=== PATIENT | female | born 1970 | race Two or more races ===

== ENCOUNTER 2019-08-15 17:09 | Emergency (ER) | payer OTHER ==
[~2019-08-15] VITALS: Ht 152.4 cm; Wt 90.7 kg
[~2019-08-15 17:09] MED LIST: ALBU90OI6 INH; ALBU90OI61 INH; AZIT250 PO; CODGUAEL PO; COUMADIN; HYDACE5 PO; HYDR1TAB94 PO; IBUP600 PO; IBUP800 PO; LEVFLO500 PO; Monodox100 MG PO; NAPR500 PO; Norco 5-325 Ta1 EACH PO; ONDA4 PO; OXYACE5T PO; PHENA200 PO; SIME80CH PO; SULTRIDS PO; WARF5 PO; ZOFRAN
[2019-08-15] MEDS ORDERED: Norco 5-325 Ta1 EACH PO (19:16)
[2019-08-15] MEDS ORDERED: IBUP800 PO (19:16)
[2019-08-15] MEDS ORDERED: CRUTCH2 XX (19:17)
== END 2019-08-15 19:30 | disposition home or self-care (01) ==
LOC: ER 17:09
DX: S72.422A Displaced fracture of lateral condyle of left femur, initial encounter for closed fracture (principal); Z79.899 Other long term (current) drug therapy; Z79.51 Long term (current) use of inhaled steroids; Z86.718 Personal history of other venous thrombosis and embolism; X50.1XXA Overexertion from prolonged static or awkward postures, initial encounter
CPT/HCPCS: 29505; 99283-25; A9270-GY

== ENCOUNTER 2021-10-25 06:56 | Day surgery (SDC) | payer OTHER ==
[~2021-10-25] VITALS: Ht 160 cm; Wt 79.0 kg
[~2021-10-25 06:56] MED LIST changes: +ASPI81CH PO; +COQ-10100 MG PO; +CRUTCH2 XX; +EXCEDRIN PO; +IBUP200 PO; +IBUPROFEN IB200 MG PO; +KRILL OIL500 MG PO; +MELO7.5 PO; +MULTI-VITAMIN1 EAC2 PO; +OMEGA-3 + D SO1 EACH PO; +OMEGA-3 + VITA200 ML PO; +POTASSIUM PO; +Percocet 5-3251 EACH PO; +Potassium2 MEQ/1 M4 PO
--- NOTE | 2021-10-25 07:09 | NUR ---
, AMAURY, AT BEDSIDE. 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 OFFERED PAPERBOARD BOXES ESTIMATOR SERVCIE TO BE INITATIED AT PATIENT'S REQUEST AT ANYTIME DURING HER STAY. Patient confirms NPO status and agrees with scheduled surgery. History, Chart, Medications and Allergies reviewed before start of procedure.
--- NOTE | 2021-10-25 07:34 | NUR ---
NOZIN NASAL STAFF ENGINEER X3 AMPULES USED TO CLEAN NARES PER DR HWANG' ORDER. KNEE HIGH SAMEERA HOSE AND CALF PAS APPLIED TO RLE.
--- NOTE | 2021-10-25 08:24 | NUR ---
UP TO BR TO VOID PRIOR TO GOING TO OR.
--- NOTE | 2021-10-25 12:38 | NUR ---
PT ARRIVED TO UNIT FROM PACU VSS. PT DENIES PAIN, STATES LEG FEELS "HEAVY". SPOUSE AT BEDSIDE. DRESSING TO LLE CDI. POLAR PACK IN PLACE. TXA STARTED PER ORDERS.
--- NOTE | 2021-10-25 17:24 | NUR ---
summary NO ACUTE CHANGES SINCE ARRIVING TO FLOOR FROM PACU. PT WORKED W/THERAPY AND VOIDED. TXA COMPLETED PER ORDERS. MEDICATED PER ORDERS FOR PAIN. CALL LIGHT IN REACH.
--- NOTE | 2021-10-26 03:25 | NUR ---
SHIFT SUMMARY: PT. AOX4, AMBULATES TO THE BATHROOM ON SBA WITHOUT PROBLEMS.COMPLAINTS OF L KNEE PAIN MEDICATD PER EMAR. PT'S. DAUGHTER STAYED IN THE ROOM FOR THE NIGHT PER PT'S REQUEST WHICH APPROVED. EDUCATED ON CALLING FOR HELP/ASSISTANCE & NOT FALL, PT. VERBALIZED UNDERSTANDING, CLWR. VOIDING & SLEEPING WELL. NO S/S OF RESP./CV DISTRESS NOTED. WILL CONTINUE TO MONITOR.
[2021-10-26 04:50] LABS: BASOPHILS ABSOLUTE AUTO 0.01 K/mm3 (0.00-0.23); BASOPHILS PERCENT AUTO 0 % (0-2); EOSINOPHILS ABSOLUTE AUTO 0.06 K/mm3 (0.00-0.68); EOSINOPHILS PERCENT AUTO 0 % (0-6); Hematocrit 30.5 % (33.0-51.0); Hemoglobin 9.7 g/dL (11.5-16.0); IMMATURE GRAN ABSOLUTE AUTO 0.05 K/mm3 (0.00-0.10); IMMATURE GRAN PERCENT AUTO 0 % (0-1); LYMPHOCYTES PERCENT AUTO 17 % (21-46); MONOCYTES ABSOLUTE AUTO 0.96 K/mm3 (0.16-1.47); MONOCYTES PERCENT AUTO 7 % (4-13); Mean Corpuscular HGB 27.5 pg (26.0-34.0); Mean Corpuscular HGB Conc 31.8 g/dL (31.5-36.5); Mean Corpuscular Volume 86 fL (80-100); Mean Platelet Volume 10.7 fL (9.1-12.4); NEUTROPHILS ABSOLUTE AUTO 10.67 K/mm3 (1.96-9.15); NEUTROPHILS PERCENT AUTO 75 % (41-73); Platelet Count 277 K/mm3 (150-400); RDW Coefficient Variation 13.8 % (11.7-14.2); RDW Standard Deviation 43.5 fL (35.1-46.3); Red Blood Cell Count 3.53 M/mm3 (3.80-5.20); White Blood Cell Count 14.15 K/mm3 (4.00-11.30)
[2021-10-26 05:17] LABS: Anion Gap 3 mmol/L (6-16); Blood Urea Nitrogen 16 mg/dL (8-24); Bun/Creatinine Ratio 28.8 (12.0-20.0); CO2, Blood 28 mmol/L (21-32); Calcium, Blood 8.7 mg/dL (8.5-10.1); Chloride, Blood 107 mmol/L (98-108); Creatinine, Blood 0.56 mg/dL (0.40-1.00); Glomerular Filtration Rate >60 (60-); Glucose, Blood 117 mg/dL (70-99); Potassium, Blood 3.9 mmol/L (3.5-5.5); Sodium, Blood 138 mmol/L (136-145)
--- NOTE | 2021-10-26 12:18 | NUR ---
DISCHARGE: PACKET PRINTED AND PT/PT DAUGHTER EDUCATED. PT GIVEN SCRIPTS, MEDS DID NOT NEED FAXED TO PHARMACY. PT GIVEN EXTRA AQUACEL DRESSINGS. PT VERBALIZED UNDERSTANDING OF TEACHING. LEFT UNIT VIA WHEELCHAIR WITH JULISA WRIGHT AND DAUGHTER AT ABOUT 1215.
--- NOTE | 2021-10-26 13:48 | NUR ---
10/26/21 1348 Katerina Witt VERIFICATIONS: EDIT CHART.
== END 2021-10-26 12:17 | disposition home or self-care (01) ==
LOC: ORSCMMR 06:56 → ORD 08:15 → SURS 11:59 → ORSCMMR 10-26 12:17
PROVIDERS: Orthopaedic Surgery
PROC: 0SRD0JA Replacement of Left Knee Joint with Synthetic Substitute, Uncemented, Open Approach (ICD-10-PCS; principal; 2021-10-25 08:15)
DX: M17.12 Unilateral primary osteoarthritis, left knee (principal); Z96.651 Presence of right artificial knee joint; Z79.82 Long term (current) use of aspirin; Z79.899 Other long term (current) drug therapy; E66.9 Obesity, unspecified; Z68.35 Body mass index [BMI] 35.0-35.9, adult
CPT/HCPCS: 36415; 73560-LT; 80048; 85025; 97110; 97116; 97161; 97530; A9270; C1776; J0171; J0690; J0735; J1100; J1885; J2250; J2370; J2405; J2704; J2795; J3010; J7120

== ENCOUNTER 2022-03-31 06:14 | Day surgery (SDC) | payer OTHER ==
[~2022-03-31] VITALS: Ht 157.5 cm; Wt 83.0 kg
[~2022-03-31 06:14] MED LIST changes: +KRILL OIL 1,001 EACH PO; +Mobic15 MG PO; +POTASSIUM99 M3 PO
--- NOTE | 2022-03-31 07:58 | NUR ---
03/31/22 0757 Demi Rowan UNDER HEAD, PILLOW UNDER KNEES, RIGHT ARM TUCKED, LEFT ARM SECURED ON PADDED ARM BOARD.
== END 2022-03-31 08:50 | disposition home or self-care (01) ==
LOC: ORSCSDS 06:14
PROVIDERS: Orthopaedic Surgery
PROC: 0JBD0ZZ Excision of Right Upper Arm Subcutaneous Tissue and Fascia, Open Approach (ICD-10-PCS; principal; 2022-03-31 07:30)
DX: D17.21 Benign lipomatous neoplasm of skin and subcutaneous tissue of right arm (principal)
CPT/HCPCS: 88304; J0171; J0690; J1100; J1885; J2250; J2405; J2704; J2795; J3010; J7120

== ENCOUNTER 2023-04-06 11:14 | Emergency (ER) | payer OTHER ==
[~2023-04-06] VITALS: Ht 154.9 cm; Wt 93.4 kg
[2023-04-06 11:53] LABS: BASOPHILS ABSOLUTE AUTO 0.03 K/mm3 (0.00-0.23); BASOPHILS PERCENT AUTO 0 % (0-2); EOSINOPHILS ABSOLUTE AUTO 0.25 K/mm3 (0.00-0.68); EOSINOPHILS PERCENT AUTO 3 % (0-6); Hematocrit 41.9 % (33.0-51.0); Hemoglobin 13.9 g/dL (11.5-16.0); IMMATURE GRAN ABSOLUTE AUTO 0.02 K/mm3 (0.00-0.10); IMMATURE GRAN PERCENT AUTO 0 % (0-1); LYMPHOCYTES PERCENT AUTO 39 % (21-46); MONOCYTES ABSOLUTE AUTO 0.54 K/mm3 (0.16-1.47); MONOCYTES PERCENT AUTO 7 % (4-13); Mean Corpuscular HGB 27.8 pg (26.0-34.0); Mean Corpuscular HGB Conc 33.2 g/dL (31.5-36.5); Mean Corpuscular Volume 84 fL (80-100); Mean Platelet Volume 11.5 fL (9.1-12.4); NEUTROPHILS ABSOLUTE AUTO 3.63 K/mm3 (1.96-9.15); NEUTROPHILS PERCENT AUTO 49 % (41-73); Platelet Count 281 K/mm3 (150-400); RDW Coefficient Variation 14.3 % (11.7-14.2); RDW Standard Deviation 43.2 fL (35.1-46.3); White Blood Cell Count 7.37 K/mm3 (4.00-11.30)
[2023-04-06 13:17] LABS: Albumin, Blood 3.7 g/dL (3.4-5.0); Albumin/Globulin Ratio 0.9 (0.8-1.8); Bilirubin, Total 0.3 mg/dL (0.1-1.0); Bun/Creatinine Ratio 24.4 (12.0-20.0); Calcium, Blood 9.3 mg/dL (8.5-10.1); Creatinine, Blood 0.57 mg/dL (0.40-1.00); Globulin, Blood 4.1 g/dL (2.2-4.0); Potassium, Blood 4.2 mmol/L (3.5-5.5); Total Protein, Blood 7.8 g/dL (6.4-8.2)
[2023-04-06 13:49] VITALS: BP 124/76
[2023-04-06] MEDS ORDERED: Robaxin750 MG PO (14:11)
[2023-04-06] MEDS ORDERED: IBUP800 PO (14:11)
== END 2023-04-06 14:32 | disposition home or self-care (01) ==
LOC: ER 11:14
PROVIDERS: Physician Assistant
DX: S39.012A Strain of muscle, fascia and tendon of lower back, initial encounter (principal); G89.29 Other chronic pain; Z86.718 Personal history of other venous thrombosis and embolism; X58.XXXA Exposure to other specified factors, initial encounter
CPT/HCPCS: 76705; 80053; 83690; 85025; 96372; 99284-25; A9270; J1885

== ENCOUNTER 2023-05-09 07:40 | Day surgery (SDC) | payer OTHER ==
[~2023-05-09] VITALS: Ht 154.9 cm; Wt 90.1 kg
[~2023-05-09 07:40] MED LIST changes: +Robaxin750 MG PO
[2023-05-09] MEDS ORDERED: COENZYME Q-1030 MG (07:52)
[2023-05-09 09:50] VITALS: BP 94/74
== END 2023-05-09 10:15 | disposition home or self-care (01) ==
LOC: ORSCSDS 07:40
PROVIDERS: Internal Medicine Gastroenterology
PROC: 0DBL8ZX Excision of Transverse Colon, Via Natural or Artificial Opening Endoscopic, Diagnostic (ICD-10-PCS; principal; 2023-05-09 09:00)
PROC: 0DBK8ZX Excision of Ascending Colon, Via Natural or Artificial Opening Endoscopic, Diagnostic (ICD-10-PCS; principal; 2023-05-09 09:00)
DX: R10.31 Right lower quadrant pain (principal); R10.11 Right upper quadrant pain; D12.2 Benign neoplasm of ascending colon; D12.3 Benign neoplasm of transverse colon; Z79.899 Other long term (current) drug therapy
CPT/HCPCS: 88305; J2704; J7120

== ENCOUNTER 2024-06-14 15:34 | Emergency (ER) | payer OTHER ==
[~2024-06-14] VITALS: Ht 154.9 cm; Wt 90.7 kg
[~2024-06-14 15:34] MED LIST changes: +COENZYME Q-1030 MG
[2024-06-14 16:02] VITALS: BP 127/88
== END 2024-06-14 17:54 | disposition home or self-care (01) ==
LOC: ER 15:34
DX: I82.812 Embolism and thrombosis of superficial veins of left lower extremity (principal)
CPT/HCPCS: 93971; 99283-25